=== PATIENT | male | born 1940 | race Caucasian/White ===

== ENCOUNTER 2024-06-05 10:16 | Emergency (ER) | payer MEDICARE ==
[~2024-06-05] VITALS: Ht 177.8 cm; Wt 88.2 kg
[~2024-06-05 10:16] MED LIST: [UNRECOGNIZED DRUG - REMARK]
[2024-06-05 10:26] VITALS: PULSE 84; RESP 18; TEMP 98.2; O2SAT 97
[2024-06-05] MEDS ORDERED: ATORVASTATIN CA20 MG PO (11:19)
[2024-06-05] MEDS ORDERED: FLUOXETINE HCL20 MG PO (11:19)
[2024-06-05] MEDS ORDERED: VITAMIN B-121000 MCG PO (11:19)
[2024-06-05] MEDS ORDERED: MULTI-VITAMIN1 EACH PO (11:19)
[2024-06-05] MEDS ORDERED: VITAMIN D350 MCG (11:19)
[2024-06-05] MEDS ORDERED: FLOMAX0.4 MG PO (11:19)
[2024-06-05] MEDS ORDERED: AMLODIPINE BESYL5 MG PO (11:19)
[2024-06-05] MEDS ORDERED: ASPIRIN EC81 MG PO (11:19)
[2024-06-05] MEDS ORDERED: ARICEPT5 MG PO (11:19)
[2024-06-05] MEDS ORDERED: CLOPIDOGREL75 MG PO (11:19)
[2024-06-05] MEDS ORDERED: ZITHROMAX250 MG PO (11:21)
[2024-06-05] MEDS: AZITHROMYCIN 250 MG TAB PO ONE (11:48)
== END 2024-06-05 11:39 | disposition home or self-care (01) ==
LOC: FSED 10:25
DX: J40 Bronchitis, not specified as acute or chronic (principal); Z71.6 Tobacco abuse counseling; Z20.822 Contact with and (suspected) exposure to COVID-19
CPT/HCPCS: 0223U; 83518; 87400; 99283